=== PATIENT | male | born 1980 | race Two or more races ===

== ENCOUNTER 2020-04-04 03:09 | Emergency (ER) | payer OTHER ==
[~2020-04-04] VITALS: Ht 185.4 cm; Wt 124.7 kg
--- NOTE | 2020-04-04 03:25 | NUR ---
PT LISA FOR MEDICAL CLEARANCE FOR BOOKING. PT STATES HE HAS BEEN COUGHING AND IS SICK WELL, HOWEVER NEITHER HAVE GOTTEN COVID TESTING. PT AAOX4. VITAL SIGNS STABLE. RESPIRATIONS EVEN AND UNLABORED. SKIN INTACT. AMBULATORY WITH STEADY GAIT. NO ACUTE DISTRESS. [employer] AT BEDSIDE
--- NOTE | 2020-04-04 03:38 | NUR ---
RADIOLOGY AT BEDSIDE FOR CXR
--- NOTE | 2020-04-04 04:44 | NUR ---
LAB CALLED REGARDING NEGATIVE COVID RESULT.
--- NOTE | 2020-04-04 05:37 | NUR ---
Patient discharged with [facility] for otb in stable condition. Written and verbal after care instructions given.
[2020-04-04 05:38] VITALS: BP 155/90
== END 2020-04-04 05:38 ==
LOC: ER 03:11
DX: R05 Cough (principal); Z20.822 Contact with and (suspected) exposure to COVID-19
CPT/HCPCS: 71045; 87426; 99284; C9803